=== PATIENT | male | born 1960 | race Two or more races ===

== ENCOUNTER 2020-08-06 13:04 | Emergency (ER) | payer SELFPAY ==
[~2020-08-06] VITALS: Ht 162.6 cm; Wt 60.5 kg
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
[2020-08-06 13:57] LABS: PH, VENOUS 7.293 pH (7.320-7.420)
[2020-08-06 13:59] LABS: BASOPHILS % (AUTO) 1 % (0-1); EOSINOPHILS % (AUTO) 3 % (1-7); LYMPHOCYTES % (AUTO) 23 % (22-44); MEAN CORPUSCULAR HEMOGLOBIN 31.9 pg (27.5-34.5); MEAN CORPUSCULAR HGB CONC 34.4 g/dL (33.2-36.2); MEAN PLATELET VOLUME 7.9 fL (7.4-10.4); MONOCYTES % (AUTO) 7 % (2-9); NEUTROPHILS % (AUTO) 67 % (42-75); PLATELET COUNT 297 x10^3/uL (130-400); RED BLOOD COUNT 4.21 x10^6/uL (4.38-5.82); RED CELL DISTRIBUTION WIDTH 13.4 % (9.4-14.8)
[2020-08-06] MEDS ORDERED: SODIUM CHLORIDE 0.9% 1,000ML IVBOLUS ONE ×3 (14:00→17:00)
[2020-08-06] MEDS ORDERED: SODIUM CHLORIDE FLUSH 10ML SYR IVF ONE (14:00)
[2020-08-06 14:01] LABS: MD NO
[2020-08-06 14:11] LABS: ALANINE AMINOTRANSFERASE 16 U/L (12-78); ALBUMIN 2.9 g/dL (3.4-5.0); ANION GAP 3 mmol/L (5-15); CALCIUM 8.4 mg/dL (8.5-10.1); CHLORIDE 97 mmol/L (98-107); CREATININE 1.44 mg/dL (0.7-1.3)
[2020-08-06 14:13] LABS: ALKALINE PHOSPHATASE 108 U/L (45-117); BILIRUBIN,TOTAL 0.3 mg/dL (0.2-1.0)
[2020-08-06 14:24] LABS: ACETONE, SERUM Negative (Negative)
--- NOTE | 2020-08-06 14:55 | NUR ---
PT RESTING, SECOND LITER NS INFUSING. VSS. AMBULTED TO BATHROOM . STEADY GAIT. UA SENT
[2020-08-06 15:31] LABS: MICROSCOPIC AUTO
--- NOTE | 2020-08-06 15:50 | NUR ---
FINGER STICK 493
[2020-08-06] MEDS ORDERED: INSULIN SINGLE DOSE, ER ONE (16:22)
[2020-08-06] MEDS ORDERED: INSULIN REGULAR 100 UNITS/ML, 3ML VIAL SQ-INSULIN ONE (16:30)
--- NOTE | 2020-08-06 16:44 | NUR ---
10 U, INSULIN ADMIN PER ORDERS. PT RESTING.
--- NOTE | 2020-08-06 17:11 | NUR ---
THIRD NS BOLUS INFUSING.
--- NOTE | 2020-08-06 18:04 | NUR ---
FINGER STICK 292. AWARE. OK FOR DC.
[2020-08-06 18:43] VITALS: BP 111/41
--- NOTE | 2020-08-06 18:43 | NUR ---
Patient given discharge instructions and they have confirmed that they understand the instructions. Patient ambulatory with steady gait.
== END 2020-08-06 18:47 | disposition home or self-care (01) ==
LOC: ED 14:39
DX: E11.65 Type 2 diabetes mellitus with hyperglycemia (principal); R42 Dizziness and giddiness
CPT/HCPCS: 36415; 71045; 80053; 81001; 82010; 82803; 82962; 85025; 96360; 96361; 99285; J1815; J7030